=== PATIENT | female | born 1990 | race Caucasian/White ===

== ENCOUNTER → 2018-02-25 | Outpatient (CLI) | payer OTHER, MEDICAID | LOC: LAB 14:10 | PROVIDERS: ATTEND Nurse Practitioner Family | DX: Z32.01 Encounter for pregnancy test, result positive (principal) | CPT/HCPCS: 36415; 84703 ==

== ENCOUNTER → 2018-05-05 | Outpatient (REF) ==
[2018-05-05 08:59] LABS: LDL CHOLESTEROL 108 mg/dl
== END ==
DX: Z02.9 Encounter for administrative examinations, unspecified (principal)

== ENCOUNTER → 2018-05-16 | Outpatient (CLI) | payer OTHER, MEDICAID ==
[~2018-05-16] MED LIST: PREN-127 PO
[2018-05-16 12:32] LABS: PLATELET COUNT, AUTOMATED 367 K/uL (150-450)
== END ==
LOC: LAB 09:30
PROVIDERS: ATTEND Obstetrics & Gynecology
DX: Z34.91 Encounter for supervision of normal pregnancy, unspecified, first trimester (principal)
CPT/HCPCS: 36415; 81001; 84702; 85025; 86592; 86703; 86762; 86850; 86900; 86901; 87088; 87340

== ENCOUNTER 2018-05-29 07:39 | Emergency (ER) | payer OTHER, MEDICAID ==
--- NOTE | 2018-05-29 07:57 | ER Report ---
History and Physical Time Seen By MD: 07:47 HPI/ROS CHIEF COMPLAINT: Vaginal Bleeding HISTORY OF PRESENT ILLNESS: Patient is a 27-year-old female who is a G2 para 1 at 7 weeks 6 days by last menstrual period of 04/04/2018. Patient has had her i nitial OB appointment. Record lists her blood type is O+. Patient states that she had some brown vaginal discharge early last week. She began having some spotting yesterday. This morning she noticed some cramping and some light blood when wiping. She denies any other vaginal discharge. REVIEW OF SYSTEMS: Respiratory: No cough, no dyspnea. Cardiovascular: No chest pain, no palpitations. Gastrointestinal: No vomiting, no abdominal pain. Musculoskeletal: No back pain. -mild pelvic cramping, "like menses" Allergies: Coded Allergies: No Known Drug Allergies (Unverified , 05/29/18) Home Meds Reported Medications Vits W-Ca,Fe,Fa(<1MG) ( VITAMINS) 1 Each Tablet, 1 EACH PO DAILY, TAB 05/16/18 Past Medical/Surgical History Prior delivery Smoking Status: Never Smoker Constitutional Vital Sign - Last 24 Hours 05/29/18 05/29/18 05/29/18 05/29/18 07:39 07:45 07:48 08:00 Temp 98.3 Pulse 111 111 Resp 16 B/P (MAP) 132/91 (105) 132/91 119/80 (93) Pulse Ox 95 O2 Delivery Room Air 05/29/18 05/29/18 05/29/18 05/29/18 08:09 08:30 08:39 09:09 Pulse 92 86 89 Resp 22 12 12 B/P (MAP) 120/76 (91) Pulse Ox 94 94 98 O2 Delivery Room Air Room Air Room Air 05/29/18 05/29/18 05/29/18 09:14 09:30 09:44 Pulse 83 104 Resp 10 15 B/P (MAP) 112/72 (85) Pulse Ox 98 95 O2 Delivery Room Air Room Air Physical Exam General Appearance: The patient is alert, has no immediate need for airway protection and no current signs of toxicity. Eyes: Pupils equal and round no injection. Respiratory: Chest is non tender, lungs are clear to auscultation. Cardiac: regular rate and rhythm Gastrointestinal: Abdomen is soft and non tender, no masses, bowel sounds normal. Musculoskeletal: Neck: Neck is supple and non tender. Extremities have full range of motion and are non tender. Skin: No rashes or lesions. Medical Decision Making Data Points Result Diagram: 05/29/18 0800 05/29/18 0800 Laboratory Hematology Test 05/29/18 08:00 05/29/18 08:58 Red Blood Count 4.77 M/uL (4.17-5.56) Mean Corpuscular Volume 87.3 fL (80.0-96.0) Mean Corpuscular Hemoglobin 29.4 pg (26.0-33.0) Mean Corpuscular Hemoglobin Concent 33.6 g/dL (32.0-36.0) Red Cell Distribution Width 13.1 % (11.5-14.5) Mean Platelet Volume 7.7 fL (7.2-11.1) Neutrophils (%) (Auto) 62.0 % (39.4-72.5) Lymphocytes (%) (Auto) 30.5 % (17.6-49.6) Monocytes (%) (Auto) 6.5 % (4.1-12.4) Eosinophils (%) (Auto) 0.8 % (0.4-6.7) Basophils (%) (Auto) 0.2 % (0.3-1.4) Nucleated RBC Relative Count (auto) 0.0 /100WBC Neutrophils # (Auto) 6.9 K/uL (2.0-7.4) Lymphocytes # (Auto) 3.4 K/uL (1.3-3.6) Monocytes # (Auto) 0.7 K/uL (0.3-1.0) Eosinophils # (Auto) 0.1 K/uL (0.0-0.5) Basophils # (Auto) 0.0 K/uL (0.0-0.1) Nucleated RBC Absolute Count (auto) 0.00 K/uL Prothrombin Time 13.3 seconds (12.0-14.4) Prothromb Time International Ratio 1.01 Activated Partial Thromboplast Time 31 seconds (23-35) Sodium Level 137 mmol/L (137-145) Potassium Level 3.8 mmol/L (3.5-5.0) Chloride Level 101 mmol/L (98-107) Carbon Dioxide Level 22 mmol/L (22-31) Blood Urea Nitrogen 9 mg/dl (7-18) Creatinine 0.50 mg/dl (0.52-1.04) Glomerular Filtration Rate Calc > 60.0 Random Glucose 89 mg/dl (75-110) Calcium Level 9.3 mg/dl (8.4-10.2) Total Bilirubin 0.5 mg/dl (0.2-1.3) Aspartate Amino Transf (AST/SGOT) 18 U/L (0-35) Alanine Aminotransferase (ALT/SGPT) 26 U/L (0-56) Alkaline Phosphatase 85 U/L (0-126) Total Protein 7.9 g/dl (6.3-8.2) Albumin 4.2 g/dl (3.5-5.0) Human Chorionic Gonadotropin, Quant 02817 mIU/ml Urine Color Straw Urine Clarity Clear Urine pH 8.0 pH (4.8-9.5) Urine Specific Olga 1.004 Urine Protein Negative mg/dL (NEGATIVE) Urine Glucose (UA) Negative mg/dL (NEGATIVE) Urine Ketones Negative mg/dL (NEGATIVE) Urine Blood Moderate (NEGATIVE) Urine Nitrite Negative (NEGATIVE) Urine Bilirubin Negative (NEGATIVE) Urine Urobilinogen Negative mg/dL (0.2-1.9) Urine Leukocyte Esterase Negative (NEGATIVE) Urine RBC <1 /HPF (0-2/HPF) Urine WBC <1 /HPF (0-5/HPF) Urine Squamous Epithelial Cells Many /LPF (</=FEW) Urine Bacteria Negative /HPF (NONE-FEW) Urine Mucus None /HPF (NONE-FEW) Chemistry Test 05/29/18 08:00 05/29/18 08:58 White Blood Count 11.2 k/uL (4.5-11.0) Red Blood Count 4.77 M/uL (4.17-5.56) Hemoglobin 14.0 g/dL (12.0-16.0) Hematocrit 41.7 % (34.0-47.0) Mean Corpuscular Volume 87.3 fL (80.0-96.0) Mean Corpuscular Hemoglobin 29.4 pg (26.0-33.0) Mean Corpuscular Hemoglobin Concent 33.6 g/dL (32.0-36.0) Red Cell Distribution Width 13.1 % (11.5-14.5) Platelet Count 315 K/uL (150-450) Mean Platelet Volume 7.7 fL (7.2-11.1) Neutrophils (%) (Auto) 62.0 % (39.4-72.5) Lymphocytes (%) (Auto) 30.5 % (17.6-49.6) Monocytes (%) (Auto) 6.5 % (4.1-12.4) Eosinophils (%) (Auto) 0.8 % (0.4-6.7) Basophils (%) (Auto) 0.2 % (0.3-1.4) Nucleated RBC Relative Count (auto) 0.0 /100WBC Neutrophils # (Auto) 6.9 K/uL (2.0-7.4) Lymphocytes # (Auto) 3.4 K/uL (1.3-3.6) Monocytes # (Auto) 0.7 K/uL (0.3-1.0) Eosinophils # (Auto) 0.1 K/uL (0.0-0.5) Basophils # (Auto) 0.0 K/uL (0.0-0.1) Nucleated RBC Absolute Count (auto) 0.00 K/uL Prothrombin Time 13.3 seconds (12.0-14.4) Prothromb Time International Ratio 1.01 Activated Partial Thromboplast Time 31 seconds (23-35) Glomerular Filtration Rate Calc > 60.0 Calcium Level 9.3 mg/dl (8.4-10.2) Total Bilirubin 0.5 mg/dl (0.2-1.3) Aspartate Amino Transf (AST/SGOT) 18 U/L (0-35) Alanine Aminotransferase (ALT/SGPT) 26 U/L (0-56) Alkaline Phosphatase 85 U/L (0-126) Total Protein 7.9 g/dl (6.3-8.2) Albumin 4.2 g/dl (3.5-5.0) Human Chorionic Gonadotropin, Quant 18804 mIU/ml Urine Color Straw Urine Clarity Clear Urine pH 8.0 pH (4.8-9.5) Urine Specific Olga 1.004 Urine Protein Negative mg/dL (NEGATIVE) Urine Glucose (UA) Negative mg/dL (NEGATIVE) Urine Ketones Negative mg/dL (NEGATIVE) Urine Blood Moderate (NEGATIVE) Urine Nitrite Negative (NEGATIVE) Urine Bilirubin Negative (NEGATIVE) Urine Urobilinogen Negative mg/dL (0.2-1.9) Urine Leukocyte Esterase Negative (NEGATIVE) Urine RBC <1 /HPF (0-2/HPF) Urine WBC <1 /HPF (0-5/HPF) Urine Squamous Epithelial Cells Many /LPF (</=FEW) Urine Bacteria Negative /HPF (NONE-FEW) Urine Mucus None /HPF (NONE-FEW) Coagulation Test 05/29/18 08:00 Prothrombin Time 13.3 seconds Prothromb Time International Ratio 1.01 Activated Partial Thromboplast Time 31 seconds Urinalysis Test 05/29/18 08:58 Urine Color Straw Urine Clarity Clear Urine pH 8.0 pH (4.8-9.5) Urine Specific Olga 1.004 Urine Protein Negative mg/dL (NEGATIVE) Urine Glucose (UA) Negative mg/dL (NEGATIVE) Urine Ketones Negative mg/dL (NEGATIVE) Urine Blood Moderate (NEGATIVE) Urine Nitrite Negative (NEGATIVE) Urine Bilirubin Negative (NEGATIVE) Urine Urobilinogen Negative mg/dL (0.2-1.9) Urine Leukocyte Esterase Negative (NEGATIVE) Urine RBC <1 /HPF (0-2/HPF) Urine WBC <1 /HPF (0-5/HPF) Urine Squamous Epithelial Cells Many /LPF (</=FEW) Urine Bacteria Negative /HPF (NONE-FEW) Urine Mucus None /HPF (NONE-FEW) EKG/Imaging Imaging FACILITY: [facility] [place] PATIENT NAME: Eliza Deng : 1990 MR: [id number] V: [id number] EXAM DATE: [id number] ORDERING PHYSICIAN: MIREILLE KNIGHT TECHNOLOGIST: Location: [facility] Patient: Eliza Deng : 1990 Visit/Account:[id number] Date of Sevice: 05/29/2018 Ultrasound OB less than 14 weeks: HISTORY: Cramps and heavy bleeding today. EGA by LMP 7 weeks 6 days. COMPARISON: None. FINDINGS: Transabdominal and transvaginal scanning was performed. Single intrauterine gestational sac, yolk sac and pole identified. [place]-rump length is measured at 10.9 cm corresponding to gestational age 7 weeks 2 days. This is concordant with EGA based on given LMP. heart rate documented at 149 bpm. Probable small subchorionic hemorrhage seen along the inferior margin of the gestational sac. Cervix is closed. Right ovary measures 3.6 x 2.2 x 3.2 cm. What is probably the corpus luteum is present. Left ovary measures 2.5 x 1.1 x 2.3 cm. Multiple small follicles present. Blood flow is documented to both ovaries. No free fluid is present cul-de-sac. Pelvic vessels are normal. IMPRESSION: 1. Intrauterine measuring 7 weeks 2 days based on crown-rump length. This is concordant with EGA based on LMP. 2. heart rate 149 bpm. 3. Small subchorionic hemorrhage. Report Dictated By: Maryana Dang MD at 05/29/2018 9:45 AM Report E-Signed By: Maryana Dang MD at 05/29/2018 9:51 AM WSN:[id number] ED Course/Re-evaluation ED Course 05/29/2018 7:56:32 am bedside ultrasound confirms intrauterine . poles present and I believe I was able to obtain a heart rate of 136 bpm. Re-evaluation 05/29/2018 7:56:53 am plan this time will be to confirm blood type will also get formal ultrasound Decision to Disposition Date: May 29, 2018 Decision to Disposition Time: 10:09 Depart Departure Latest Vital Signs Vital Signs Date Time Temp Pulse Resp B/P (MAP) Pulse Ox O2 Delivery O2 Flow Rate FiO2 05/29/18 09:44 104 15 95 Room Air 05/29/18 09:30 112/72 (85) 05/29/18 07:48 98.3 Impression: Primary Impression: Threatened in early Condition: Improved Disposition: HOME OR SELF-CARE Referrals: LISETH MONTENEGRO APRN RECOOPERER-C (PCP) Patient Instructions: Threatened Miscarriage (ED) Additional Instructions: Pelvic rest (nothing in the vagina) until cleared by obstetrics MIREILLE KNIGHT MD May 29, 2018 07:57
[2018-05-29 08:17] LABS: PLATELET COUNT, AUTOMATED 315 K/uL (150-450)
[2018-05-29 08:22] LABS: INR 1.01
--- NOTE | 2018-05-29 09:55 | RADIOLOGY IMAGING REPORT ---
FACILITY: [facility] PATIENT NAME: Eliza Deng : 1990 MR: [id number] V: [id number] EXAM DATE: [id number] ORDERING PHYSICIAN: MIREILLE KNIGHT TECHNOLOGIST: Location: [facility] Patient: Eliza Deng : 1990 Visit/Account:[id number] Date of Sevice: 05/29/2018 Ultrasound OB less than 14 weeks: HISTORY: Cramps and heavy bleeding today. EGA by LMP 7 weeks 6 days. COMPARISON: None. FINDINGS: Transabdominal and transvaginal scanning was performed. Single intrauterine gestational sac , yolk sac and pole identified. [place]-rump length is measured at 10.9 cm corresponding to gesta tional age 7 weeks 2 days. This is concordant with EGA based on given LMP. heart rate documente d at 149 bpm. Probable small subchorionic hemorrhage seen along the inferior margin of the gestationa l sac. Cervix is closed. Right ovary measures 3.6 x 2.2 x 3.2 cm. What is probably the corpus luteum is present. Left ovary me asures 2.5 x 1.1 x 2.3 cm. Multiple small follicles present. Blood flow is documented to both ovaries . No free fluid is present cul-de-sac. Pelvic vessels are normal. IMPRESSION: 1. Intrauterine measuring 7 weeks 2 days based on crown-rump length. This is concordant wit h EGA based on LMP. 2. heart rate 149 bpm. 3. Small subchorionic hemorrhage. Report Dictated By: Maryana Dang MD at 05/29/2018 9:45 AM Report E-Signed By: Maryana Dang MD at 05/29/2018 9:51 AM WSN:[id number]
[2018-05-29 10:00] VITALS: BP 118/78
== END 2018-05-29 10:17 | disposition home or self-care (01) ==
LOC: ER 08:05
DX: O20.0 Threatened abortion (principal); Z3A.01 Less than 8 weeks gestation of pregnancy
CPT/HCPCS: 76801; 81001; 82040; 82247; 82310; 82374; 82435; 82565; 82947; 84075; 84132; 84155; 84295; 84450; 84460; 84520; 84702; 85025; 85610; 85730; 86850; 86900; 86901; 99284

== ENCOUNTER → 2018-06-06 | Outpatient (CLI) | payer OTHER, MEDICAID | LOC: LAB 11:34 | PROVIDERS: ATTEND Student in an Organized Health Care Education/Training Program | DX: Z34.91 Encounter for supervision of normal pregnancy, unspecified, first trimester (principal) | CPT/HCPCS: 87491; 87591 ==